=== PATIENT | male | born 1970 | race Two or more races ===

== ENCOUNTER 2018-07-01 15:07 | Emergency (ER) | payer MEDICAID ==
[2018-07-01 15:16] VITALS: TEMP 97.9
--- NOTE | 2018-07-01 16:52 | ED PDOC ---
HPI: Psych/Substance Abuse Time Seen by Provider: 07/01/18 15:30 Chief Complaint (Nursing): Substance Abuse Chief Complaint (Provider): substance abuse ED Caveat: Intoxicated, Uncooperative History Per: Patient, EMS History/Exam Limitations: clinical condition Onset/Duration Of Symptoms: Unknown Current Symptoms Are (Timing): Still Present Modifying Factor(s): Alcohol, Other Severity: Severe Associated Symptoms: Paranoia Involuntary Hold By: Emergency Physician Additional Complaint(s): 47yo male arrives via EMS per report unresponsive on scene given narcan became arousable and combative, arrived ED uncooperative, admits to drinking alcohol and "doing dust", no reports trauma. Past Medical History Reviewed: Historical Data, Nursing Documentation, Vital Signs, Unable To Obtain Vital Signs: Last Vital Signs Temp 97.9 F 07/01/18 15:13 Pulse 100 H 07/01/18 15:13 Resp 18 07/01/18 15:13 BP 106/70 07/01/18 15:13 Pulse Ox 98 07/01/18 15:13 - Allergies Allergies/Adverse Reactions: Allergies Allergy/AdvReac Type Severity Reaction Status Date / Time Unobtainable Allergy Verified 07/01/18 15:13 Review of Systems Review Of Systems: ROS cannot be obtained secondary to pt's inabilty to answer questions. Physical Exam - Reviewed Nursing Documentation Reviewed: Yes Vital Signs Reviewed: Yes - Physical Exam Appears: Positive for: Non-toxic (agitated slurred speech pupils sluggish) Head Exam: Positive for: ATRAUMATIC, NORMAL INSPECTION, NORMOCEPHALIC Skin: Positive for: Normal Color, Warm, DRY Eye Exam: Positive for: EOMI, Normal appearance, PERRL ENT: Positive for: Normal ENT Inspection Neck: Positive for: Normal, Painless ROM Cardiovascular/Chest: Positive for: Regular Rate, Rhythm Respiratory: Positive for: CNT, Normal Breath Sounds Extremity: Positive for: Normal ROM. Negative for: Deformity, Swelling Neurologic/Psych: Positive for: Alert, Other (agitated pressured speech poor insight). Negative for: Facial Droop - ECG O2 Sat by Pulse Oximetry: 98 Medical Decision Making Medical Decision Making: patient required relief of agitation w medication to allow for collection of diagnostics Placed monitoring and evaluation advisor Disposition - Clinical Impression Clinical Impression: Substance abuse - Patient ED Disposition Is Patient to be Admitted: Transfer of Care Counseled Patient/Family Regarding: Studies Performed - Disposition Disposition: Transfer of Care Disposition Time: 16:54 Condition: FAIR Forms: [employer] ([place]) Patient Signed Over To: Lamont Rey Handoff Comments: pending labs, EKG, sobriety and dispo
--- NOTE | 2018-07-01 17:29 | ED PDOC ---
- Laboratory Results Result Diagrams: 07/01/18 17:35 07/01/18 17:35 - ECG O2 Sat by Pulse Oximetry: 98 (RA) Pulse Ox Interpretation: Normal - Progress Re-evaluation Time: 19:00 Condition: Re-examined, Improved Medical Decision Making Medical Decision Making: Time: 1700 --Patient signed out to this provider by Dr. Sotelo, pending labs and clinical sobriety. ---- Scribe Attestation: Documented by Alannah Strong, acting as a scribe for Lamont Rey MD Provider Scribe Attestation: All medical record entries made by the Scribe were at my direction and personally dictated by me. I have reviewed the chart and agree that the record accurately reflects my personal performance of the history, physical exam, medical decision making, and the department course for this patient. I have also personally directed, reviewed, and agree with the discharge instructions and disposition. Disposition Counseled Patient/Family Regarding: Studies Performed, Diagnosis, Need For Followup - Clinical Impression Clinical Impression: Substance abuse, PCP (phencyclidine) abuse - POA Present On Arrival: None - Disposition Disposition: Routine/Home Disposition Time: 19:00 Condition: IMPROVED Instructions: Drug Abuse and Drug Addiction (DC)
[2018-07-01 17:44] LABS: BASO # 0.1 K/uL (0.0-0.2); BASO % 1.5 % (0.0-2.0); EOS # 0.3 K/uL (0.0-0.7); EOS % 5.1 % (0.0-4.0); HEMOGLOBIN 15.2 g/dL (12.0-18.0); LYMPH # 2.2 K/uL (1.0-4.3); LYMPH % 32.4 % (20.0-40.0); MEAN CELL VOLUME 82.3 fl (80.0-94.0); MEAN CORPUSCULAR HEMOGLOBIN 27.6 pg (27.0-31.0); MEAN CORPUSCULAR HGB CONC 33.5 g/dL (33.0-37.0); MEAN PLATELET VOLUME 8.3 fl (7.2-11.7); MONO # 0.7 K/uL (0.0-0.8); MONO % 10.5 % (0.0-10.0); NEUT # 3.4 K/uL (1.8-7.0); NEUT % 50.5 % (50.0-75.0); NRBC % 0.1 % (0.0-0.0); RBC 5.51 Mil/uL (4.40-5.90); RED CELL DISTRIBUTION WIDTH 13.9 % (11.5-14.5); WHITE BLOOD COUNT 6.8 K/uL (4.8-10.8)
[2018-07-01 17:59] LABS: ALB/GLOB RATIO 1.3 (1.0-2.1); ALBUMIN 4.5 g/dL (3.5-5.0); ALT/SGPT 35 U/L (21-72); AST/SGOT 35 U/L (17-59); BLOOD UREA NITROGEN 8 mg/dl (9-20); CALCIUM 9.2 mg/dL (8.4-10.2); GFR NON-AFRICAN AMERICAN > 60
[2018-07-01 18:03] LABS: BARBITURATES, UR NEGATIVE (NEGATIVE); BENZODIAZEPINES, UR NEGATIVE (NEGATIVE); OPIATES, UR NEGATIVE (NEGATIVE); PHENCYCLIDINE, UR POSITIVE (NEGATIVE)
[2018-07-01 18:51] VITALS: BP 116/70; PULSE 84; RESP 17
[2018-07-02] MEDS ORDERED: Amoxicillin-Clav 875-125 mg Tab PO ONE (01:11)
[2018-07-02 07:40] VITALS: O2SAT 98
== END 2018-07-01 19:17 | disposition home or self-care (01) ==
LOC: H.ER 15:07
DX: F16.10 Hallucinogen abuse, uncomplicated (principal)
CPT/HCPCS: 80053; 80320; 80324; 80345; 80346; 80349; 80353; 80358; 80361; 82550; 83992; 85025; 96372; 99284; J1630; J2060